=== PATIENT | female | born 1955 | race Caucasian/White ===

== ENCOUNTER 2019-10-01 07:56 | Emergency (ER) | payer MEDICARE, MEDICAID ==
[~2019-10-01] VITALS: Ht 165.1 cm; Wt 93.0 kg
[~2019-10-01 07:56] MED LIST: ALBU18HF INH; BUDE10.2 INH; BUTA1CAP57 PO; DIAZ5TAB PO; FLUT9.9S NAS; SERT50TA PO; ZOLP10TA PO
--- NOTE | 2019-10-01 08:12 | NUR ---
PATIENT BROUGHT FROM TRIAGE WITH CHIEF COMPLAINT OF "I'VE BEEN SICK FOR ABOUT A MONTH AND IT'S GETTING WORSE. I'VE HAD A COUGH" DENIES N/V, CP, RECENT TRAUMA. PATIENT IS ALERT, ORIENTED, WARM AND DRY. ABLE TO SPEAK FULL SENTANCES. HX COPD, AND HOME O2 HOWEVER HASNT USED O2 FOR 4 DAYS.
--- NOTE | 2019-10-01 08:46 | NUR ---
PT TO IMAGING
[2019-10-01] MEDS ORDERED: ALBUTEROL/IPRATROPIUM 2.5MG/0.5MG, 3 ML ONE (08:49)
[2019-10-01] MEDS ORDERED: ALBUTEROL/IPRATROPIUM 2.5MG/0.5MG, 3 ML NPPB ONE (09:00)
--- NOTE | 2019-10-01 09:00 | NUR ---
RT AT BEDSIDE TO ADMINISTER BREATHING TREATMENT
[2019-10-01 09:22] VITALS: BP 112/64
[2019-10-01] MEDS ORDERED: CEFTRIAXONE 1,000 MG IM ONE (09:30)
[2019-10-01] MEDS ORDERED: CEFTRIAXONE 1,000 MG ONE (09:32)
--- NOTE | 2019-10-01 09:39 | NUR ---
POC/DISCHARGE INSTRUCTIONS REVIEWED
== END 2019-10-01 10:34 | disposition home or self-care (01) ==
LOC: ED 09:00
DX: J44.1 Chronic obstructive pulmonary disease with (acute) exacerbation (principal); J18.0 Bronchopneumonia, unspecified organism
CPT/HCPCS: 71046; 93005; 94640; 96372; 99283; J0696; J7512; J7620